=== PATIENT | female | born 1980 ===

== ENCOUNTER 2017-08-18 10:27 | Emergency (ER) | payer OTHER ==
[2017-08-18 10:31] VITALS: BP 139/82; PULSE 77; TEMP 98
[2017-08-18 10:32] VITALS: BMI 33.4
[2017-08-18 10:45] VITALS: RESP 18; O2SAT 98
--- NOTE | 2017-08-18 11:01 | ED PDOC ---
HPI: Female Pain Time Seen by Provider: 08/18/17 10:37 Chief Complaint (Nursing): Female Genitourinary Chief Complaint (Provider): Vaginal spotting History Per: Patient History/Exam Limitations: no limitations Onset/Duration Of Symptoms: Days (4) Current Symptoms Are (Timing): Still Present Additional Complaint(s): 36yo female, no known past medical history, LMP on 06/12/17, presents to the ED for evaluation of vaginal spotting for the past 4 days. Patient denies any abdominal pain. No other complaints. Abnormal Vaginal Bleeding: No Last Menstral Period: 06/12/07 Past Medical History Reviewed: Historical Data, Nursing Documentation, Vital Signs Vital Signs: Last Vital Signs Temp 98 F 08/18/17 10:42 Pulse 77 08/18/17 10:42 Resp 18 08/18/17 10:42 BP 139/82 08/18/17 10:42 Pulse Ox 98 08/18/17 10:42 - Medical History PMH: No Chronic Diseases - Surgical History Surgical History: No Surg Hx - Family History Family History: States: No Known Family Hx - Allergies Allergies/Adverse Reactions: Allergies Allergy/AdvReac Type Severity Reaction Status Date / Time No Known Allergies Allergy Verified 08/18/17 10:41 Review of Systems ROS Statement: Except As Marked, All Systems Reviewed And Found Negative Gastrointestinal: Negative for: Abdominal Pain Genitourinary Female: Positive for: Vaginal Bleeding (spotting x 4 days) Physical Exam - Reviewed Nursing Documentation Reviewed: Yes Vital Signs Reviewed: Yes - Physical Exam Appears: Positive for: Non-toxic, No Acute Distress Head Exam: Positive for: ATRAUMATIC, NORMAL INSPECTION, NORMOCEPHALIC Skin: Positive for: Normal Color Eye Exam: Positive for: Normal appearance Neck: Positive for: Supple Cardiovascular/Chest: Positive for: Regular Rate, Rhythm Respiratory: Positive for: Normal Breath Sounds. Negative for: Respiratory Distress Gastrointestinal/Abdominal: Positive for: Soft. Negative for: Tenderness Pelvic Exam: Positive for: External Exam Normal, No Masses, Other (closed cervix , no adnexal mass or tenderness.). Negative for: Blood, Discharge, Tender Adnexa Extremity: Positive for: Normal ROM. Negative for: Deformity, Swelling Neurologic/Psych: Positive for: Alert, Oriented. Negative for: Motor/Sensory Deficits - Laboratory Results Result Diagrams: 08/18/17 11:27 - ECG O2 Sat by Pulse Oximetry: 98 (RA) Pulse Ox Interpretation: Normal Medical Decision Making Medical Decision Making: Time: 1049 Impression: vaginal spotting x 4 days Plan: -- Pelvic exam conducted with collection systems technicianemilio Ram as ethanol operations manager -- Labs -- US OB transvaginal Reassess Scribe Attestation: Documented by Zina Garcia acting as a scribe for Pito Leblanc MD. Provider Attestation: All medical record entries made by the Scribe were at my direction and personally dictated by me. I have reviewed the chart and agree that the record accurately reflects my personal performance of the history, physical exam, medical decision making, and the department course for this patient. I have also personally directed, reviewed, and agree with the discharge instructions and disposition. Disposition - Clinical Impression Clinical Impression: Threatened - Patient ED Disposition Is Patient to be Admitted: No Counseled Patient/Family Regarding: Studies Performed, Diagnosis, Need For Followup, Rx Given - Disposition [facility]errals: [facility] [Outside] Disposition: Routine/Home Disposition Time: 13:05 Condition: FAIR Additional Instructions: Regressa en dos wilkins para repetir la prueba de sange Instructions: Threatened Miscarriage (ED) Forms: [employer]Tracks (Yi) Print Language: MOZAMBICAN
[2017-08-18 11:39] LABS: BASO # 0.1 K/uL (0.0-0.2); BASO % 0.6 % (0.0-2.0); EOS # 0.1 K/uL (0.0-0.7); EOS % 0.6 % (0.0-4.0); HEMATOCRIT 37.2 % (34.0-47.0); LYMPH # 2.2 K/uL (1.0-4.3); LYMPH % 22.4 % (20.0-40.0); MEAN CELL VOLUME 93.1 fl (81.0-99.0); MEAN CORPUSCULAR HEMOGLOBIN 31.3 pg (27.0-31.0); MEAN CORPUSCULAR HGB CONC 33.6 g/dL (33.0-37.0); MEAN PLATELET VOLUME 8.7 fl (7.2-11.7); MONO # 0.4 K/uL (0.0-0.8); MONO % 4.2 % (0.0-10.0); NEUT # 7.2 K/uL (1.8-7.0); NEUT % 72.2 % (50.0-75.0); NRBC % 0.1 % (0.0-0.0); RED CELL DISTRIBUTION WIDTH 13.5 % (11.5-14.5); WHITE BLOOD COUNT 9.9 K/uL (4.8-10.8)
--- NOTE | 2017-08-18 12:55 | US ---
PROCEDURE: First trimester ultrasound HISTORY: r/o ectopic. Spotting 4 days duration Beta HCG results: 1948.3 COMPARISON: None available. TECHNIQUE: Standard protocol for this study/examination. FINDINGS: Prior examinations from the current : None TECHNIQUE: Real-time 2D imaging, duplex and color Doppler. Cardiac activity: Absent Measurements: [place] rump length: 0.29 cm Gestational age based on CRL 5 week 6 status Gestational age based on gestational sac measurement 6 weeks Gestational age derived from LMP: 10 weeks JAMAL based on LMP: 03/16/2018 JAMAL based on biometry: 04/13/2018 Gestational concordance documented Yolk sac identified Uterus: Unremarkable. No Cervical abnormalities: Negative examination for cervical dilatation or effacement. Closed cervix measuring 3.3 cm Subchorionic hemorrhage: None UTERUS: 5.3 x 7.3 x 9.91 cm. ADNEXA: Right: 1.1 x 1.4 x 1.9 cm. Normal Doppler arterial waveform documented. Left: 2 x 2 x 2.4 cm. Simple cyst 1.4 x 1.6 cm Normal Doppler arterial waveform documented Fluid in the cul-de-sac: None IMPRESSION: Findings suspicious for intrauterine demise based on absence of cardiac activity in approximately 4 weeks discordance between gestational ages. No visible ectopic gestation.
== END 2017-08-18 13:29 | disposition home or self-care (01) ==
LOC: H.ER 10:27
DX: O20.0 Threatened abortion (principal)

== ENCOUNTER 2017-08-20 08:58 | Emergency (ER) | payer OTHER ==
[2017-08-20 09:10] VITALS: O2SAT 100; BMI 33.6
[2017-08-20 09:24] VITALS: RESP 18
[2017-08-20 10:26] LABS: BASO % 0.5 % (0.0-2.0); EOS # 0.1 K/uL (0.0-0.7); EOS % 1.1 % (0.0-4.0); HEMATOCRIT 37.3 % (34.0-47.0); LYMPH # 2.7 K/uL (1.0-4.3); LYMPH % 30.4 % (20.0-40.0); MEAN CELL VOLUME 91.6 fl (81.0-99.0); MEAN CORPUSCULAR HEMOGLOBIN 30.9 pg (27.0-31.0); MEAN CORPUSCULAR HGB CONC 33.7 g/dL (33.0-37.0); MEAN PLATELET VOLUME 8.3 fl (7.2-11.7); MONO # 0.4 K/uL (0.0-0.8); MONO % 4.4 % (0.0-10.0); NEUT # 5.7 K/uL (1.8-7.0); NEUT % 63.6 % (50.0-75.0); NRBC % 0.1 % (0.0-0.0); RED CELL DISTRIBUTION WIDTH 13.1 % (11.5-14.5); WHITE BLOOD COUNT 8.9 K/uL (4.8-10.8)
[2017-08-20 10:47] LABS: BLOOD UREA NITROGEN 9 mg/dl (7-17); CALCIUM 9.4 mg/dL (8.4-10.2); CARBON DIOXIDE 23 mmol/L (22-30); CHLORIDE 107 mmol/L (98-107); GFR AFRICAN-AMERICAN > 60; GLUCOSE,RANDOM 92 mg/dL (65-105); POTASSIUM 3.6 MMOL/L (3.6-5.0); SODIUM 144 mmol/l (132-148)
--- NOTE | 2017-08-20 11:53 | ED PDOC ---
HPI: Female Pain Time Seen by Provider: 08/20/17 09:17 Chief Complaint (Nursing): Female Genitourinary Chief Complaint (Provider): Female Genitourinary History Per: Patient History/Exam Limitations: no limitations Current Symptoms Are (Timing): Still Present Additional Complaint(s): Maya Martin is a 36 year old female that presents to the ED for a reevaluation. Patient reports that she was last seen in the ED two days ago and was found to be ; LMP was 06/12/17. Beta quant was found to be 1900, and US revealed possible demise. Patient reports that she has had ongoing mild vaginal spotting and cramping, but denies weakness or dizziness. Abnormal Vaginal Bleeding: Yes Past Medical History Reviewed: Historical Data, Nursing Documentation, Vital Signs Vital Signs: Last Vital Signs Temp 97.9 F 08/20/17 09:20 Pulse 70 08/20/17 09:20 Resp 18 08/20/17 09:20 BP 130/75 08/20/17 09:20 Pulse Ox 100 08/20/17 09:20 - Medical History PMH: No Chronic Diseases - Surgical History Surgical History: No Surg Hx - Family History Family History: States: Unknown Family Hx - Home Medications Home Medications: Ambulatory Orders Medication Instructions Recorded oxyCODONE/Acetaminophen [Percocet 1 ea PO TID PRN #6 tab 08/20/17 5/325 mg Tab] - Allergies Allergies/Adverse Reactions: Allergies Allergy/AdvReac Type Severity Reaction Status Date / Time No Known Allergies Allergy Verified 08/20/17 09:20 Review of Systems Gastrointestinal: Positive for: Abdominal Pain (Cramping) Genitourinary Female: Positive for: Vaginal Bleeding (mild vaginal spotting) Neurological: Negative for: Weakness, Dizziness Physical Exam - Reviewed Nursing Documentation Reviewed: Yes Vital Signs Reviewed: Yes - Physical Exam Appears: Positive for: Non-toxic, No Acute Distress Head Exam: Positive for: ATRAUMATIC, NORMOCEPHALIC Skin: Positive for: Normal Color, Warm Eye Exam: Positive for: Normal appearance, EOMI, PERRL Neck: Positive for: Normal, Supple Cardiovascular/Chest: Positive for: Regular Rate, Rhythm. Negative for: Murmur Respiratory: Positive for: Normal Breath Sounds. Negative for: Wheezing Gastrointestinal/Abdominal: Positive for: Normal Exam, Soft. Negative for: Tenderness Back: Positive for: Normal Inspection. Negative for: L CVA Tenderness, R CVA Tenderness Extremity: Positive for: Normal ROM. Negative for: Deformity, Swelling Neurologic/Psych: Positive for: Alert, Oriented. Negative for: Motor/Sensory Deficits - Laboratory Results Result Diagrams: 08/20/17 10:21 08/20/17 10:21 - ECG O2 Sat by Pulse Oximetry: 100 (RA) Pulse Ox Interpretation: Normal Medical Decision Making Medical Decision Making: Impression: Reevaluation for Possible Demise Plan: * US OB Transvaginal * Beta quant decreased to 1500 * Reevaluation US OB Transvaginal FINDINGS: TECHNIQUE: Real-time 2D imaging, duplex and color Doppler. Cardiac activity: Absent. This is reproduced Measurements: [place] rump length: 0 0.32 -corresponding to 5 weeks 4 days-6 weeks 2 days Gestational age derived from LMP: 10 weeks JAMAL based on LMP: 03/16/2018 JAMAL based on biometry: 04/13/2018 Gestational disconcordance documented Yolk sac identified Uterus: Unremarkable. No Cervical abnormalities: Negative examination for cervical dilatation or effacement. Incidental nabothian cysts. Subchorionic hemorrhage: Small subchorionic bleeds noted 1 bleed is 4 x 5 x 6 mm another is 8 x 3 x 3 mm. UTERUS: 7.9 x 6.2 x 5.1 cm ADNEXA: Right: 1.4 x 2.9 x 1.5 Normal Doppler arterial waveform documented. Left: 2.2 x 2.6 x 2.6 Simple cyst 1.6 x 1.8 x 1.4 Normal Doppler arterial waveform documented Fluid in the cul-de-sac: None IMPRESSION: The absent cardiac activity is reproduced on the 2nd study - 2 small subchorionic hemorrhage is noted. Findings consistent with demise. The estimated gestational age by ultrasound is 6 weeks 0 days 0 weeks 3 days. This contrasts with the gestational age by LMP of [address] Decker OB consulted and recommended cytotec, she placed the medication vaginally and instructions for return to ER in 3 days for re-evaluation were given. Pain medicine Rx (Dr Decker gave Rx for motrin, I added percocet#6 for severe pain) Instructions explained in albanian. Scribe Attestation: Documented by Tanja Newman, acting as a scribe for Cheikh Jeronimo III, DO. Provider Scribe Attestation: All medical record entries made by the Scribe were at my direction and personally dictated by me. I have reviewed the chart and agree that the record accurately reflects my personal performance of the history, physical exam, medical decision making, and the department course for this patient. I have also personally directed, reviewed, and agree with the discharge instructions and disposition Disposition - Clinical Impression Clinical Impression: Missed - Patient ED Disposition Is Patient to be Admitted: No Counseled Patient/Family Regarding: Studies Performed, Diagnosis, Need For Followup, Rx Given - Disposition Referrals: [facility] [Outside] Disposition: Routine/Home Disposition Time: 13:36 Condition: STABLE Additional Instructions: Return to ER on friday for repeat bloodwork and evaluation. Prescriptions: oxyCODONE/Acetaminophen [Percocet 5/325 mg Tab] 1 ea PO TID PRN #6 tab PRN Reason: Pain, Severe (8-10) Instructions: Spontaneous Miscarriage (ED), Misoprostol (By mouth) Forms: [employer]elation (Frisian) Print Language: MOLDOVAN
--- NOTE | 2017-08-20 12:49 | CP.PCM.CON ---
<Deepika Henderson - Last Filed: 08/20/17 16:25> History of Present Illness - History of Present Illness History of Present Illness: CC: Vaginal bleeding HPI: 36 YO with LMP of 06/11/17 is seen in [facility] ED for vaginal bleeding. Pt states that she has had vaginal bleeding x 1 week and low back pain. She did not pass any large clots but states that the bleeding is similar to her periods. Pt was last seen in the ED 08/18 for similar concerns, at the time pt was found to have BHCG pf 1948 and transvaginal u/s was sig for suspicious for intrauterine demise based on abscence of cardiac activity in appropriately 4 weeks discordance between gestation ages. Pt was sent home with a follow up in ED. Today a pt had blood work sig for BHCG of 1513 and repeat transvaginal u/s sig for absent cardiac activity, finding consistent with demise. Estimated gestational age by u/s is 6 weeks contrasts with gestational age of 10.2 wks. Denies fever, headache, dizziness, n/v/d/c. Clinic: [place] [facility]x: 2 full term 1 nvd and 1 in 2012 for distress GynHx: no STIs, normal pap. Started menstruation at age 11 and her periods are regular and last 5 days. PMH: denies SurgH: 2012 SH: , no smoking, illicit drug use or ETOH FH: denies Meds: none Allergies: NKDA Review of Systems - Constitutional Constitutional: absent: Chills, Fever, Headache - Cardiovascular Cardiovascular: absent: Chest Pain, Palpitations - Respiratory Respiratory: absent: Cough, Dyspnea - Gastrointestinal Gastrointestinal: absent: Abdominal Pain, Bloating - Reproductive: Female Reproductive:Female: Normal Menses, Abnormal Vaginal Bleeding - Menstruation Menstruation: Normal Menses, Abnormal Vaginal Bleeding - Musculoskeletal Musculoskeletal: Back Pain (low back pain) - Neurological Neurological: absent: Dizziness, Headaches - Psychiatric Psychiatric: Anxiety Past Patient History - Past Medical History & Family History Past Medical History?: No - Past Social History Smoking Status: Never Smoked Alcohol: None Drugs: Denies Home Situation {Lives}: With Family - PSYCHIATRIC Hx Substance Use: No - SURGICAL HISTORY Hx Section: Yes - ANESTHESIA Hx Anesthesia: Yes Hx Anesthesia Reactions: No Meds Home Medications: Home Medication List Medication Instructions Recorded Confirmed Type oxyCODONE/Acetaminophen [Percocet 1 ea PO TID PRN #6 tab 08/20/17 Rx 5/325 mg Tab] Allergies/Adverse Reactions: Allergies Allergy/AdvReac Type Severity Reaction Status Date / Time No Known Allergies Allergy Verified 08/20/17 09:20 Physical Exam - Constitutional Appears: In Acute Distress - Head Exam Head Exam: ATRAUMATIC, NORMAL INSPECTION - Eye Exam Eye Exam: EOMI, Normal appearance - ENT Exam ENT Exam: Mucous Membranes Moist - Neck Exam Neck exam: Positive for: Full Rom, Normal Inspection - Respiratory Exam Respiratory Exam: Clear to Auscultation Bilateral, NORMAL BREATHING PATTERN - Cardiovascular Exam Cardiovascular Exam: REGULAR RHYTHM, +S1, +S2 - GI/Abdominal Exam GI & Abdominal Exam: Normal Bowel Sounds, Soft. absent: Distended, Tenderness - Exam Exam: NORMAL INSPECTION Speculum exam: Vaginal Bleeding - Extremities Exam Extremities exam: Positive for: full ROM, normal inspection. Negative for: pedal edema - Back Exam Back exam: NORMAL INSPECTION. absent: CVA tenderness (L), CVA tenderness (R) - Neurological Exam Neurological exam: Alert, Normal Gait, Oriented x3 - Psychiatric Exam Psychiatric exam: Anxious - Skin Skin Exam: Dry, Intact, Normal Color, Warm Results - Vital Signs Recent Vital Signs: Last Vital Signs Temp 97.9 F 08/20/17 09:20 Pulse 70 08/20/17 09:20 Resp 18 08/20/17 09:20 BP 130/75 08/20/17 09:20 Pulse Ox 100 08/20/17 11:59 - Labs Result Diagrams: 08/20/17 10:21 08/20/17 10:21 Labs: Laboratory Results - last 24 hr 08/20/17 08/20/17 08/20/17 10:21 10:21 10:21 WBC 8.9 RBC 4.07 Hgb 12.6 Hct 37.3 MCV 91.6 MCH 30.9 MCHC 33.7 RDW 13.1 Plt Count 298 MPV 8.3 Neut % (Auto) 63.6 Lymph % (Auto) 30.4 Burke % (Auto) 4.4 Eos % (Auto) 1.1 Baso % (Auto) 0.5 Neut # 5.7 Lymph # 2.7 Burke # 0.4 Eos # 0.1 Baso # 0.0 Sodium 144 Potassium 3.6 Chloride 107 Carbon Dioxide 23 Anion Gap 18 BUN 9 Creatinine 0.6 L Est GFR ( Amer) > 60 Est GFR (Non-Af Amer) > 60 Random Glucose 92 Calcium 9.4 Beta HCG, Quant 1513.00 Assessment & Plan - Assessment and Plan (Free Text) Assessment: 36 YO @ 10 wks IUP (by LMP 06/11/17) is seen in ED for vaginal bleeding likely 2/2 to an Missed AB. BHGC is down from 1948 to 151 today and repeat transvaginal u/s sig for absent cardiac activity, finding consistent with demise. Missed AB -u/s appreciated demise noted -BHCG is down from 1948 (08/18) to 151 (08/20) -cytotec 800mg is ordered and administered vaginally -pt agrees with plan and agrees to follow up on Friday in [facility] ED -ER precautions given, come back with worsening pain, severe bleeding <Ruchi Cedillo - Last Filed: 08/20/17 17:22> Results - Vital Signs Recent Vital Signs: Last Vital Signs Temp 98.0 F 08/20/17 14:41 Pulse 78 08/20/17 14:41 Resp 18 08/20/17 14:41 BP 130/78 08/20/17 14:41 Pulse Ox 100 08/20/17 14:41 - Labs Result Diagrams: 08/20/17 10:21 08/20/17 10:21 Labs: Laboratory Results - last 24 hr 08/20/17 08/20/17 08/20/17 10:21 10:21 10:21 WBC 8.9 RBC 4.07 Hgb 12.6 Hct 37.3 MCV 91.6 MCH 30.9 MCHC 33.7 RDW 13.1 Plt Count 298 MPV 8.3 Neut % (Auto) 63.6 Lymph % (Auto) 30.4 Burke % (Auto) 4.4 Eos % (Auto) 1.1 Baso % (Auto) 0.5 Neut # 5.7 Lymph # 2.7 Burke # 0.4 Eos # 0.1 Baso # 0.0 Sodium 144 Potassium 3.6 Chloride 107 Carbon Dioxide 23 Anion Gap 18 BUN 9 Creatinine 0.6 L Est GFR ( Amer) > 60 Est GFR (Non-Af Amer) > 60 Random Glucose 92 Calcium 9.4 Beta HCG, Quant 1513.00 Assessment & Plan - Assessment and Plan (Free Text) Assessment: OB Hospitalist Addendum: Pt seen and examined. Agree w/ above. 36 yo at 10 wks GA by LMP w/ embryonic demise measuring 6 wks by u/s who p/w 5 days of bleeding. I explained the diagnosis to her and her partner through lang interpreter . Pt and her were very upset. Flight Tower Dispatcher was called to see her. On exam: pt appeared comfortable although visibly upset after she was told about the demise. VE: cervix was thick and closed. Light blood seen on glove. 800 mcg misoprostol placed in vagina to help complete the miscarriage. Pt told to return to the ED on 08/23/2017 for possible repeat dose of misoprostol if she has not completely passed the . (ES
[2017-08-20 14:32] VITALS: TEMP 98
[2017-08-20 14:42] VITALS: BP 130/78; PULSE 78
== END 2017-08-20 15:01 | disposition home or self-care (01) ==
LOC: H.ER 08:58
DX: O02.1 Missed abortion (principal)

== ENCOUNTER 2017-08-20 19:25 | Observation (INO) | payer OTHER ==
[2017-08-20 19:26] VITALS: BMI 33.6
[2017-08-20] MEDS ORDERED: Sodium Chloride 0.9% 1,000 ML IV STA ×2 (19:54→23:06)
[2017-08-20 20:35] LABS: BASO # 0.1 K/uL (0.0-0.2); BASO % 0.7 % (0.0-2.0); EOS # 0.1 K/uL (0.0-0.7); EOS % 0.4 % (0.0-4.0); HEMATOCRIT 36.2 % (34.0-47.0); LYMPH % 17.2 % (20.0-40.0); MEAN CELL VOLUME 91.4 fl (81.0-99.0); MEAN CORPUSCULAR HEMOGLOBIN 30.7 pg (27.0-31.0); MEAN CORPUSCULAR HGB CONC 33.5 g/dL (33.0-37.0); MEAN PLATELET VOLUME 8.8 fl (7.2-11.7); MONO # 0.7 K/uL (0.0-0.8); MONO % 4.1 % (0.0-10.0); NEUT # 13.6 K/uL (1.8-7.0); NEUT % 77.6 % (50.0-75.0); RED CELL DISTRIBUTION WIDTH 13.1 % (11.5-14.5); WHITE BLOOD COUNT 17.6 K/uL (4.8-10.8)
--- NOTE | 2017-08-20 20:43 | ED PDOC ---
HPI: Abdomen Time Seen by Provider: 08/20/17 19:52 Chief Complaint (Nursing): Abdominal Pain Chief Complaint (Provider): Abdominal Pain History Per: Patient History/Exam Limitations: no limitations Current Symptoms Are (Timing): Still Present Additional Complaint(s): 36 y/o female () presents to the ED complaining of abdominal pain. Patient is 6 weeks GA and was evaluated by Dr. Cedillo earlier this morning for missed AB. She was administered intravaginal cytotec. Later during the day she developed cramps and lower abdominal pain radiating to the back. She took Percocet with no relief. Patient noted light spotting but denies heavy vaginal bleeding. Past Medical History Reviewed: Historical Data, Nursing Documentation, Vital Signs Vital Signs: Last Vital Signs Temp 97.9 F 08/21/17 18:11 Pulse 77 08/21/17 18:11 Resp 18 08/21/17 18:11 BP 113/75 08/21/17 18:11 Pulse Ox 98 08/21/17 18:11 - Family History Family History: States: Unknown Family Hx - Social History Current smoker - smoking cessation education provided: No Alcohol: None Drugs: Denies - Home Medications Home Medications: Ambulatory Orders Medication Instructions Recorded No Known Home Med 08/21/17 - Allergies Allergies/Adverse Reactions: Allergies Allergy/AdvReac Type Severity Reaction Status Date / Time No Known Allergies Allergy Verified 08/20/17 09:20 Review of Systems ROS Statement: Except As Marked, All Systems Reviewed And Found Negative (As per HPI, otherwise negative) Gastrointestinal: Positive for: Abdominal Pain (lower abdominal pain radiating to the back) Genitourinary Female: Negative for: Vaginal Bleeding (light spotting noted) Musculoskeletal: Positive for: Other (cramps) Physical Exam - Reviewed Nursing Documentation Reviewed: Yes Vital Signs Reviewed: Yes - Physical Exam Appears: Positive for: Non-toxic, Uncomfortable Head Exam: Positive for: ATRAUMATIC, NORMAL INSPECTION, NORMOCEPHALIC Skin: Positive for: Normal Color, Warm, Dry Eye Exam: Positive for: EOMI, Normal appearance, PERRL Neck: Positive for: Normal, Painless ROM, Supple Cardiovascular/Chest: Positive for: Regular Rate, Rhythm. Negative for: Murmur Respiratory: Positive for: Normal Breath Sounds. Negative for: Accessory Muscle Use, Respiratory Distress Gastrointestinal/Abdominal: Positive for: Soft, Tenderness (suprapubic tenderness) Back: Positive for: Normal Inspection. Negative for: L CVA Tenderness, R CVA Tenderness, Vertebral Tenderness Extremity: Positive for: Normal ROM. Negative for: Pedal Edema, Deformity Neurologic/Psych: Positive for: Alert, Oriented (x3). Negative for: Motor/ Sensory Deficits - Laboratory Results Result Diagrams: 08/21/17 04:45 08/20/17 20:05 - ECG O2 Sat by Pulse Oximetry: 100 (RA) Pulse Ox Interpretation: Normal - Critical Care Total Time (In Min): 60 Medical Decision Making Medical Decision Making: Time: 19:04 Initial Impression: 60 y/o male with past medical history of asthma, COPD and hypertension Plan: --BMP --Beta-HCG --Urine dipstick --CBC w/ diff --Dilaudid 0.5mg IVP --Sodium chloride 1L IV --Heplock insertion --Reevaluation 2242 Labs reviewed: significant for leukocytosis WBC count: 17.6 Significantly elevated from previous CBC from several horus ago. Discussed with Dr. Cedillo (LINUX ARCHITECT), who originally evaluated patient. Agreed with provider plan to repeat CBC after hydration 2346 Labs reviewed: significant for increase in WBC count to 19.[address] Cedillo, who agrees to CT scan the patient. * CTA A/P with PO & IV contrast 0232 CT FINDINGS: Limitations: Motion artifact - mild. Lower thorax: Mild atelectasis. ABDOMEN: Liver: Unremarkable. No mass. Gallbladder and bile ducts: No calcified stones. No ductal dilation. Pancreas: No ductal dilation. No mass. Spleen: No splenomegaly. Adrenals: No mass. Kidneys and ureters: Small calculus within RIGHT kidney. No hydronephrosis. Stomach and bowel: Segmental areas of probable underdistention of LEFT colon. No definite mural thickening. No obstruction. Appendix: Normal caliber. No inflammation. PELVIS: Bladder: Unremarkable. Reproductive: Heterogeneity/heterogeneous material within endometrium/cervix. 1.8 x 1.9 by 1.8 cm LEFT ovarian cyst. ABDOMEN and PELVIS: Intraperitoneal space: Trace free fluid within pelvis. No free air. Bones/joints: No acute fracture. Soft tissues: Unremarkable. Vasculature: Unremarkable. No aneurysm. Lymph nodes: No pathologically enlarged lymph nodes. IMPRESSION: 1. Heterogeneity/heterogeneous material within endometrium/cervix. DDX: Hematoma , RPOC, endometritis. 2. Incidental/non-acute findings are described above. 0330 Case re-discussed with Dr. Cedillo, who agrees with plan to repeat CBC and lactic acid level. 0500 WBC Count: 20 WBC count has increased from previous CBC. Lactic acid level normal. IV Zosyn ordered. Discussed case with Dr. Cedillo. Agrees with plant to admit patient for further monitoring of WBC count (INPATIENT MED) Scribe Attestation: Documented by [place] and Lucie Walker acting as a scribe for Robb Martines MD. Scribe Attestation: All medical record entries made by the Scribe were at my direction and personally dictated by me. I have reviewed the chart and agree that the record accurately reflects my personal performance of the history, physical exam, medical decision making, and the department course for this patient. I have also personally directed, reviewed, and agree with the discharge instructions and disposition. Disposition - Clinical Impression Clinical Impression: Abdominal pain, Missed , Leukocytosis - Patient ED Disposition Is Patient to be Admitted: Yes Discussed With DrNatanael: Ruchi Cedillo Counseled Patient/Family Regarding: Studies Performed, Diagnosis - Disposition Disposition Time: 05:00 Condition: FAIR - Pt Status Changed To: Hospital Disposition Of: Inpatient (INPATIENT MED) - Admit Certification Admit to Inpatient:: After my assessment, the patient will require hospitalization for at least two midnights. This is because of the severity of symptoms shown, intensity of services needed, and/or the medical risk in this patient being treated as an outpatient. - POA Present On Arrival: None
[2017-08-20 21:24] LABS: BLOOD UREA NITROGEN 9 mg/dl (7-17); CALCIUM 9.5 mg/dL (8.4-10.2); CARBON DIOXIDE 23 mmol/L (22-30); CHLORIDE 104 mmol/L (98-107); GFR AFRICAN-AMERICAN > 60; GLUCOSE,RANDOM 117 mg/dL (65-105); POTASSIUM 3.2 MMOL/L (3.6-5.0); SODIUM 142 mmol/l (132-148)
[2017-08-20 23:32] LABS: BASO # 0.2 K/uL (0.0-0.2); BASO % 0.8 % (0.0-2.0); EOS % 0.1 % (0.0-4.0); HEMATOCRIT 35.7 % (34.0-47.0); LYMPH # 2.3 K/uL (1.0-4.3); LYMPH % 11.7 % (20.0-40.0); MEAN CELL VOLUME 92.3 fl (81.0-99.0); MEAN CORPUSCULAR HGB CONC 32.5 g/dL (33.0-37.0); MEAN PLATELET VOLUME 8.6 fl (7.2-11.7); MONO # 0.5 K/uL (0.0-0.8); MONO % 2.5 % (0.0-10.0); NEUT # 16.5 K/uL (1.8-7.0); NEUT % 84.9 % (50.0-75.0); RED CELL DISTRIBUTION WIDTH 13.4 % (11.5-14.5); WHITE BLOOD COUNT 19.5 K/uL (4.8-10.8)
[2017-08-20] MEDS ORDERED: Iohexol 240 (50 ml) PO ONE (23:41)
[2017-08-20] MEDS ORDERED: HYDROmorphone 0.5 mg/0.5 ml ISec IVP STA (23:49)
[2017-08-21 00:15] LABS: RBC URINE 367 /hpf (0-3); URINE BACTERIA RARE (<OCC); URINE BILIRUBIN NEGATIVE (NEGATIVE); URINE BLOOD LARGE (NEGATIVE); URINE COLOR YELLOW (YELLOW); URINE GLUCOSE (UA) NEG (Normal); URINE KETONE 20 mg/dL (NEGATIVE); URINE LEUKOCYTE ESTERASE NEG Leu/uL (Negative); URINE PROTEIN 30 mg/dL (NEGATIVE); URINE UROBILINOGEN 0.2-1.0 mg/dL (0.2-1.0); WBC URINE 6 /hpf (0-5)
[2017-08-21] MEDS ORDERED: Sodium Chloride 0.9% 50 ML IV ONE (01:36)
[2017-08-21] MEDS ORDERED: Iohexol 300 100 ML IJ ONE (01:36)
--- NOTE | 2017-08-21 02:32 | CT ---
EXAM: CT Abdomen and Pelvis With Intravenous Contrast CLINICAL HISTORY: 36 years old, female; Pain; Abdominal pain; Generalized; Prior surgery; Surgery date: 6+ months; Surgery type: ; Additional info: Abd pain missed ab with leukocytosis TECHNIQUE: Axial computed tomography images of the abdomen and pelvis with intravenous contrast. All CT scans at this facility use one or more dose reduction techniques, viz.: automated exposure control; ma/kV adjustment per patient size (including targeted exams where dose is matched to indication; i.e. head); or iterative reconstruction technique. Coronal and sagittal reformatted images were created and reviewed. CONTRAST: 90 mL of administered intravenously. COMPARISON: No relevant prior studies available. FINDINGS: Limitations: Motion artifact - mild. Lower thorax: Mild atelectasis. ABDOMEN: Liver: Unremarkable. No mass. Gallbladder and bile ducts: No calcified stones. No ductal dilation. Pancreas: No ductal dilation. No mass. Spleen: No splenomegaly. Adrenals: No mass. Kidneys and ureters: Small calculus within RIGHT kidney. No hydronephrosis. Stomach and bowel: Segmental areas of probable underdistention of LEFT colon. No definite mural thickening. No obstruction. Appendix: Normal caliber. No inflammation. PELVIS: Bladder: Unremarkable. Reproductive: Heterogeneity/heterogeneous material within endometrium/cervix. 1.8 x 1.9 by 1.8 cm LEFT ovarian cyst. ABDOMEN and PELVIS: Intraperitoneal space: Trace free fluid within pelvis. No free air. Bones/joints: No acute fracture. Soft tissues: Unremarkable. Vasculature: Unremarkable. No aneurysm. Lymph nodes: No pathologically enlarged lymph nodes. IMPRESSION: 1. Heterogeneity/heterogeneous material within endometrium/cervix. DDX: Hematoma, RPOC, endometritis. 2. Incidental/non-acute findings are described above.
[2017-08-21 04:36] LABS: VENOUS BLOOD GAS BASE EXCESS -1.2 mmol/L (0.0-2.0); VENOUS BLOOD GAS MODE ROOM AIR; VENOUS BLOOD GAS PCO2 39 mmHg (40-60); VENOUS BLOOD PH 7.39 (7.32-7.43)
[2017-08-21 04:50] LABS: BASO # 0.1 K/uL (0.0-0.2); BASO % 0.4 % (0.0-2.0); EOS % 0.1 % (0.0-4.0); HEMATOCRIT 33.5 % (34.0-47.0); LYMPH # 1.6 K/uL (1.0-4.3); LYMPH % 7.8 % (20.0-40.0); MEAN CELL VOLUME 92.9 fl (81.0-99.0); MEAN CORPUSCULAR HEMOGLOBIN 30.5 pg (27.0-31.0); MEAN CORPUSCULAR HGB CONC 32.8 g/dL (33.0-37.0); MEAN PLATELET VOLUME 8.6 fl (7.2-11.7); MONO # 0.6 K/uL (0.0-0.8); MONO % 2.9 % (0.0-10.0); NEUT # 17.7 K/uL (1.8-7.0); NEUT % 88.8 % (50.0-75.0); PLATELET COUNT 277 K/uL (130-400); RED CELL DISTRIBUTION WIDTH 13.4 % (11.5-14.5)
[2017-08-21] MEDS ORDERED: Piperacillin/Tazobact 3.375 GM in Sodium Chloride 0.9% 100 ML IV STA (04:59)
--- NOTE | 2017-08-21 05:23 | CP.PCM.HP ---
<Milton Alarcon - Last Filed: 08/21/17 06:16> History of Present Illness - History of Present Illness History of Present Illness: 36 YO , 10 wks GA by LMP (06/11/17) comes to the [facility] ED for vaginal bleeding. Pt states that she has had vaginal bleeding x 1 week and low back pain. patient admits to cramps and lower abdominal pain radiating to the back ( pt took percocet with no relief). She did not pass any large clots but states that the bleeding is similar to her periods. patient admits increased bleeding after her ED visit yesterday. Pt was seen in the ED 08/18 for similar concerns, at the time pt was found to have BHCG of 1948 and transvaginal u/s was sig for suspicious for intrauterine demise based on absence of cardiac activity in appropriately 4 weeks discordance between gestation ages. Pt was sent home with a follow up in ED. Yesterday 08/20, patient presented to ED again for same reason, pt had blood work sig for BHCG of 1513 and repeat transvaginal u/s sig for absent cardiac activity, finding consistent with demise. Estimated gestational age by u/s is 6 weeks contrasts with gestational age of 10.2 wks. Patient was given Cytotec 800mg Vaginally yesterday and d/c home. patient denies any fever, headache, dizziness, n/v/d/c at this time. Clinic: [place] [facility]: 2 full term 1 nvd and 1 in 2013 for distress. BHCG is down from 1948 (08/18) to 1513 (08/20) GynHx: no STIs, normal pap. Started menstruation at age 11 and her periods are regular and last 5 days. PMH: denies SurgH: 2012 SH: , no smoking, illicit drug use or ETOH FH: denies Meds: none Allergies: NKDA ED course: - Significant leukocytosis, WBC count: 17.6, Significantly elevated from previous CBC from several horus ago. - Repeat CBC after hydration shows WBC 19.5 CTA A/P with PO & IV contrast Ordered Present on Admission - Present on Admission Any Indicators Present on Admission: No History of DVT/PE: No History of Uncontrolled Diabetes: No Urinary Catheter: No Decubitus Ulcer Present: No Review of Systems - Constitutional Constitutional: As Per HPI. absent: Chills, Fever - EENT Eyes: absent: Blurred Vision - Cardiovascular Cardiovascular: absent: Chest Pain - Respiratory Respiratory: absent: Cough, Dyspnea, Hemoptysis - Gastrointestinal Gastrointestinal: As Per HPI. absent: Diarrhea - Genitourinary Genitourinary: As Per HPI - Neurological Neurological: absent: Abnormal Hearing, Abnormal Movements, Behavioral Changes, Dizziness, Numbness - Psychiatric Psychiatric: absent: Behavioral Changes - Endocrine Endocrine: absent: Cold Intolorance, Palpitations, Polydipsia, Polyphagia, Polyuria Past Patient History - Infectious Disease Hx of Infectious Diseases: None - Past Medical History & Family History Past Medical History?: No - Past Social History Alcohol: None Drugs: Denies - PSYCHIATRIC Hx Substance Use: No - SURGICAL HISTORY Hx Section: Yes - ANESTHESIA Hx Anesthesia: Yes Hx Anesthesia Reactions: No Meds Allergies/Adverse Reactions: Allergies Allergy/AdvReac Type Severity Reaction Status Date / Time No Known Allergies Allergy Verified 08/20/17 09:20 Physical Exam - Constitutional Appears: No Acute Distress - Head Exam Head Exam: ATRAUMATIC, NORMAL INSPECTION, NORMOCEPHALIC - Eye Exam Eye Exam: Normal appearance Pupil Exam: NORMAL ACCOMODATION, PERRL - ENT Exam ENT Exam: Mucous Membranes Moist, Normal Exam - Neck Exam Neck exam: Positive for: Normal Inspection - Respiratory Exam Respiratory Exam: Clear to Auscultation Bilateral, NORMAL BREATHING PATTERN - Cardiovascular Exam Cardiovascular Exam: REGULAR RHYTHM, +S1, +S2 - GI/Abdominal Exam GI & Abdominal Exam: Normal Bowel Sounds, Soft. absent: Rebound, Tenderness - Extremities Exam Extremities exam: Positive for: full ROM, normal inspection - Back Exam Back exam: absent: CVA tenderness (L), CVA tenderness (R) - Neurological Exam Neurological exam: Alert, CN II-XII Intact, Oriented x3 - Psychiatric Exam Psychiatric exam: Normal Affect, Normal Mood - Skin Skin Exam: Dry, Intact, Normal Color Results - Vital Signs Recent Vital Signs: Last Vital Signs Temp 98.0 F 08/20/17 19:32 Pulse 77 08/20/17 19:32 Resp 16 08/20/17 19:32 BP 119/88 08/20/17 19:32 Pulse Ox 100 08/21/17 04:04 - Labs Result Diagrams: 08/21/17 04:45 08/20/17 20:05 Labs: Laboratory Results - last 24 hr 08/20/17 08/20/17 08/20/17 20:05 20:05 20:05 WBC 17.6 H D RBC 3.96 Hgb 12.1 Hct 36.2 MCV 91.4 MCH 30.7 MCHC 33.5 RDW 13.1 Plt Count 326 MPV 8.8 Neut % (Auto) 77.6 H Lymph % (Auto) 17.2 L [place] % (Auto) 4.1 Eos % (Auto) 0.4 Baso % (Auto) 0.7 Neut # 13.6 H Lymph # 3.0 [place] # 0.7 Eos # 0.1 Baso # 0.1 pO2 VBG pH VBG pCO2 VBG HCO3 VBG Total CO2 VBG O2 Sat (Calc) VBG Base Excess VBG Potassium Glucose Lactate FiO2 Sodium 142 Potassium 3.2 L Chloride 104 Carbon Dioxide 23 Anion Gap 18 BUN 9 Creatinine 0.6 L Est GFR ( Amer) > 60 Est GFR (Non-Af Amer) > 60 Random Glucose 117 H Calcium 9.5 Beta HCG, Quant 1270.20 Venous Blood Potassium Urine Color Urine Clarity Urine pH Ur Specific [place] Urine Protein Urine Glucose (UA) Urine Ketones Urine Blood Urine Nitrate Urine Bilirubin Urine Urobilinogen Ur Leukocyte Esterase Urine RBC (Auto) Urine Microscopic WBC Ur Squamous Epith Cells Urine Bacteria 08/20/17 08/20/17 08/21/17 23:15 23:28 04:27 WBC 19.5 H RBC 3.86 Hgb 11.6 L Hct 35.7 MCV 92.3 MCH 30.0 MCHC 32.5 L RDW 13.4 Plt Count 302 MPV 8.6 Neut % (Auto) 84.9 H Lymph % (Auto) 11.7 L [place] % (Auto) 2.5 Eos % (Auto) 0.1 Baso % (Auto) 0.8 Neut # 16.5 H Lymph # 2.3 [place] # 0.5 Eos # 0.0 Baso # 0.2 pO2 72 H VBG pH 7.39 VBG pCO2 39 L VBG HCO3 23.9 VBG Total CO2 24.8 VBG O2 Sat (Calc) 98.7 H VBG Base Excess -1.2 L VBG Potassium 3.5 L Glucose 127 H Lactate 0.9 FiO2 21.0 Sodium 136.0 Potassium Chloride 105.0 Carbon Dioxide Anion Gap BUN Creatinine Est GFR ( Amer) Est GFR (Non-Af Amer) Random Glucose Calcium Beta HCG, Quant Venous Blood Potassium 3.5 L Urine Color Yellow Urine Clarity Cloudy Urine pH 7.0 Ur Specific [place] 1.014 Urine Protein 30 Urine Glucose (UA) Neg Urine Ketones 20 Urine Blood Large Urine Nitrate Negative Urine Bilirubin Negative Urine Urobilinogen 0.2-1.0 Ur Leukocyte Esterase Neg Urine RBC (Auto) 367 H Urine Microscopic WBC 6 H Ur Squamous Epith Cells 1 Urine Bacteria Rare 08/21/17 04:45 WBC 20.0 H RBC 3.61 L Hgb 11.0 L Hct 33.5 L MCV 92.9 MCH 30.5 MCHC 32.8 L RDW 13.4 Plt Count 277 MPV 8.6 Neut % (Auto) 88.8 H Lymph % (Auto) 7.8 L [place] % (Auto) 2.9 Eos % (Auto) 0.1 Baso % (Auto) 0.4 Neut # 17.7 H Lymph # 1.6 [place] # 0.6 Eos # 0.0 Baso # 0.1 pO2 VBG pH VBG pCO2 VBG HCO3 VBG Total CO2 VBG O2 Sat (Calc) VBG Base Excess VBG Potassium Glucose Lactate FiO2 Sodium Potassium Chloride Carbon Dioxide Anion Gap BUN Creatinine Est GFR ( Amer) Est GFR (Non-Af Amer) Random Glucose Calcium Beta HCG, Quant Venous Blood Potassium Urine Color Urine Clarity Urine pH Ur Specific [place] Urine Protein Urine Glucose (UA) Urine Ketones Urine Blood Urine Nitrate Urine Bilirubin Urine Urobilinogen Ur Leukocyte Esterase Urine RBC (Auto) Urine Microscopic WBC Ur Squamous Epith Cells Urine Bacteria Assessment & Plan - Assessment and Plan (Free Text) Assessment: A/P: 36 YO @ 10 wks IUP (by LMP 06/11/17) is seen in ED for vaginal bleeding likely 2/2 to an Missed AB. BHGC is down from 1948 to 1513 yesterday and repeat transvaginal u/s sig for absent cardiac activity, finding consistent with demise. Missed AB - BHGC is down from 1948-->1513-->1270 - Transvaginal u/s sig for absent cardiac activity - Cytotec 800mg given yesterday - NPO - Dilaudid 0.5mg IVP - Consider D&C today Acute Leukocytosis, Unknown etiology - HD stable, Afebrile - WBC Count: 17.6--> 19.5--> 20 (with in few hours) - CT A/P: Heterogeneity/heterogeneous material within endometrium/cervix. DDX: Hematoma, RPOC, endometritis - Normal Lactic acid - IV Zosyn given Case discussed with Dr. Cedillo. Admit/Observation patient for further monitoring of WBC count (INPATIENT MED) --- Milton Alarcon, PGY-1 - Date & Time Date: 08/21/17 Time: 05:15 Decision To Admit - Pt Status Changed To: Hospital Disposition Of: Observation - . Bed Request Type: Med/Surg Admitting Physician: Dr. Cedillo <Ruchi Cedillo - Last Filed: 08/21/17 07:12> Results - Vital Signs Recent Vital Signs: Last Vital Signs Temp 98.1 F 08/21/17 05:40 Pulse 93 H 08/21/17 05:40 Resp 16 08/21/17 05:40 BP 110/84 08/21/17 05:40 Pulse Ox 97 08/21/17 05:40 - Labs Result Diagrams: 08/21/17 04:45 08/20/17 20:05 Labs: Laboratory Results - last 24 hr 08/20/17 08/20/17 08/20/17 20:05 20:05 20:05 WBC 17.6 H D RBC 3.96 Hgb 12.1 Hct 36.2 MCV 91.4 MCH 30.7 MCHC 33.5 RDW 13.1 Plt Count 326 MPV 8.8 Neut % (Auto) 77.6 H Lymph % (Auto) 17.2 L [place] % (Auto) 4.1 Eos % (Auto) 0.4 Baso % (Auto) 0.7 Neut # 13.6 H Lymph # 3.0 [place] # 0.7 Eos # 0.1 Baso # 0.1 Neutrophils % (Manual) Band Neutrophils % Lymphocytes % (Manual) Monocytes % (Manual) Platelet Estimate Hypochromasia (manual) Anisocytosis (manual) pO2 VBG pH VBG pCO2 VBG HCO3 VBG Total CO2 VBG O2 Sat (Calc) VBG Base Excess VBG Potassium Glucose Lactate FiO2 Sodium 142 Potassium 3.2 L Chloride 104 Carbon Dioxide 23 Anion Gap 18 BUN 9 Creatinine 0.6 L Est GFR ( Amer) > 60 Est GFR (Non-Af Amer) > 60 Random Glucose 117 H Calcium 9.5 Beta HCG, Quant 1270.20 Venous Blood Potassium Urine Color Urine Clarity Urine pH Ur Specific [place] Urine Protein Urine Glucose (UA) Urine Ketones Urine Blood Urine Nitrate Urine Bilirubin Urine Urobilinogen Ur Leukocyte Esterase Urine RBC (Auto) Urine Microscopic WBC Ur Squamous Epith Cells Urine Bacteria 08/20/17 08/20/17 08/21/17 23:15 23:28 04:27 WBC 19.5 H RBC 3.86 Hgb 11.6 L Hct 35.7 MCV 92.3 MCH 30.0 MCHC 32.5 L RDW 13.4 Plt Count 302 MPV 8.6 Neut % (Auto) 84.9 H Lymph % (Auto) 11.7 L [place] % (Auto) 2.5 Eos % (Auto) 0.1 Baso % (Auto) 0.8 Neut # 16.5 H Lymph # 2.3 [place] # 0.5 Eos # 0.0 Baso # 0.2 Neutrophils % (Manual) Band Neutrophils % Lymphocytes % (Manual) Monocytes % (Manual) Platelet Estimate Hypochromasia (manual) Anisocytosis (manual) pO2 72 H VBG pH 7.39 VBG pCO2 39 L VBG HCO3 23.9 VBG Total CO2 24.8 VBG O2 Sat (Calc) 98.7 H VBG Base Excess -1.2 L VBG Potassium 3.5 L Glucose 127 H Lactate 0.9 FiO2 21.0 Sodium 136.0 Potassium Chloride 105.0 Carbon Dioxide Anion Gap BUN Creatinine Est GFR ( Amer) Est GFR (Non-Af Amer) Random Glucose Calcium Beta HCG, Quant Venous Blood Potassium 3.5 L Urine Color Yellow Urine Clarity Cloudy Urine pH 7.0 Ur Specific [place] 1.014 Urine Protein 30 Urine Glucose (UA) Neg Urine Ketones 20 Urine Blood Large Urine Nitrate Negative Urine Bilirubin Negative Urine Urobilinogen 0.2-1.0 Ur Leukocyte Esterase Neg Urine RBC (Auto) 367 H Urine Microscopic WBC 6 H Ur Squamous Epith Cells 1 Urine Bacteria Rare 08/21/17 04:45 WBC 20.0 H RBC 3.61 L Hgb 11.0 L Hct 33.5 L MCV 92.9 MCH 30.5 MCHC 32.8 L RDW 13.4 Plt Count 277 MPV 8.6 Neut % (Auto) 88.8 H Lymph % (Auto) 7.8 L [place] % (Auto) 2.9 Eos % (Auto) 0.1 Baso % (Auto) 0.4 Neut # 17.7 H Lymph # 1.6 [place] # 0.6 Eos # 0.0 Baso # 0.1 Neutrophils % (Manual) 88 H Band Neutrophils % 3 H Lymphocytes % (Manual) 7 L Monocytes % (Manual) 2 Platelet Estimate Normal Hypochromasia (manual) Slight Anisocytosis (manual) Slight pO2 VBG pH VBG pCO2 VBG HCO3 VBG Total CO2 VBG O2 Sat (Calc) VBG Base Excess VBG Potassium Glucose Lactate FiO2 Sodium Potassium Chloride Carbon Dioxide Anion Gap BUN Creatinine Est GFR ( Amer) Est GFR (Non-Af Amer) Random Glucose Calcium Beta HCG, Quant Venous Blood Potassium Urine Color Urine Clarity Urine pH Ur Specific [place] Urine Protein Urine Glucose (UA) Urine Ketones Urine Blood Urine Nitrate Urine Bilirubin Urine Urobilinogen Ur Leukocyte Esterase Urine RBC (Auto) Urine Microscopic WBC Ur Squamous Epith Cells Urine Bacteria Assessment & Plan - Assessment and Plan (Free Text) Assessment: OB Hospitalist Addendum: Patient seen and examined by me. Agree w/ above. 36 yo w/ missed AB, s/p 800 mcg misoprostol placed in vagina yesterday, returned to the ED w/ abdominal pain and found to have leukocytosis. On exam, pt appeared comfortable (after pain meds), VE: slight CMT, no uterine tenderness , cervix closed, small amount blood on glove this am, although pt was noted to be bleeding more heavily last night. Last WBC was 20 w/ [address] scan revealed heterogeneous material w/i endometrium/ cx w/ differential dx including hematoma, RPOC, and endometritis. Pt started on IV Zosyn and admitted for observation d/t leukocytosis. (ES)
[2017-08-21 06:08] LABS: NEUTROPHIL 88 % (42-75); TOTAL CELLS COUNTED 100
[2017-08-21] MEDS ORDERED: Chlorhexidine Gluconate 1 APPL/PKT TP ONE (06:47)
[2017-08-21] MEDS ORDERED: Lactated Ringer's 1,000 ML IV SCH ×2 (09:45→16:00)
--- NOTE | 2017-08-21 10:32 | US ---
PROCEDURE: OB 1st trimester. ultrasound 1st trimester HISTORY: missed AB COMPARISON: 08/20/2017, 08/18/2017 ultrasound TECHNIQUE: Real-time transabdominal and transvaginal ultrasound examination of the pelvis was performed. Uterus measures 12.4 x 4.4 x 6.0 centimeters. Previously identified gestational sac is no longer appreciated. There appears to be hypoechoic structure and debris within central uterine cavity extending towards lower uterine segment and cervix. Findings suggest ongoing or missed . Additional soft tissue echogenicity is seen in the endometrial canal and towards the cervix. No pole is appreciated. Endometrial complex measures 12 millimeters. Right is normal in size and echogenicity. Small corpus luteal cyst is seen in the left ovary measuring 20 millimeters x 16 millimeters. No fluid is seen in the pelvis. No ectopic gestation is appreciated on this ultrasound exam. FINDINGS: See above IMPRESSION: Ongoing or missed with interval decrease in size and movement of the previously seen gestational sac into the lower uterine segment region. Additional soft tissue and debris are noted probably representing some hemorrhagic products.
[2017-08-21] MEDS: Piperacillin/Tazobact 3.375 GM in Sodium Chloride 0.9% 100 ML IVPB SCH ×2 (11:35→16:20)
[2017-08-21] MEDS ORDERED: Strong Iodine Topical Sol. 5%-10% ONE (14:08)
[2017-08-21] MEDS ORDERED: Ferric Subsulfate Sol(60 mL) ONE (14:08)
[2017-08-21] MEDS ORDERED: Propofol 10 mg/ml Inj (20 ML) ONE (14:41)
[2017-08-21] MEDS ORDERED: Lidocaine 1% 5ml Abboject IV ONE (14:42)
[2017-08-21] MEDS ORDERED: Oxytocin 10 Units/ml Inj ONE (14:43)
[2017-08-21] MEDS ORDERED: Lactated Ringer's 1,000 ML IV ONE (14:55)
--- NOTE | 2017-08-21 14:56 | CP.PCM.PN ---
Subjective - Date & Time of Evaluation Date of Evaluation: 08/21/17 Time of Evaluation: 14:54 - Subjective Subjective: Pt without complaints. Pt with persistent missed ab confirmed by sono this morning. Discussed options with patient and patient opting for D&C. Discussed the R/B/A of procedure and all patient questions answered. Objective - Vital Signs/Intake and Output Vital Signs (last 24 hours): Temp Pulse Resp BP Pulse Ox 98.3 F 80 17 106/69 98 08/21/17 14:42 08/21/17 14:42 08/21/17 14:42 08/21/17 14:42 08/21/17 14:42 - Medications Medications: Current Medications Hydromorphone HCl (Dilaudid) 0.5 mg IVP Q3 PRN PRN Reason: Pain, moderate (4-7) Lactated Ringer's (Lactated Ringer's) 1,000 mls @ 125 mls/hr IV .Q8H SHAI Last Admin: 08/21/17 11:40 Dose: 125 mls/hr Piperacillin Sod/Tazobactam (Sod 3.375 gm/ Sodium Chloride) 100 mls @ 100 mls/ hr IVPB Q6 SHAI PRN Reason: Protocol Last Admin: 08/21/17 11:35 Dose: 100 mls/hr - Labs Labs: 08/21/17 04:45 08/20/17 20:05 Assessment and Plan - Assessment and Plan (Free Text) Assessment: Missed Ab Plan: Pt consented for Suction D&C. Plan for routine postop observation and care.
[2017-08-21] MEDS ORDERED: HYDROmorphone 0.5 mg/0.5 ml ISec IVP PRN (15:46)
--- NOTE | 2017-08-21 17:14 | CP.PCM.DIS ---
Provider - Provider Date of Admission: 08/21/17 04:56 Attending physician: Ruchi Cedillo MD Time Spent in preparation of Discharge (in minutes): 20 Hospital Course - Lab Results Lab Results: Most Recent Lab Values WBC 20.0 K/uL (4.8-10.8) H 08/21/17 04:45 RBC 3.61 Mil/uL (3.80-5.20) L 08/21/17 04:45 Hgb 11.0 g/dL (12.0-16.0) L 08/21/17 04:45 Hct 33.5 % (34.0-47.0) L 08/21/17 04:45 MCV 92.9 fl (81.0-99.0) 08/21/17 04:45 MCH 30.5 pg (27.0-31.0) 08/21/17 04:45 MCHC 32.8 g/dL (33.0-37.0) L 08/21/17 04:45 RDW 13.4 % (11.5-14.5) 08/21/17 04:45 Plt Count 277 K/uL (130-400) 08/21/17 04:45 MPV 8.6 fl (7.2-11.7) 08/21/17 04:45 Neut % (Auto) 88.8 % (50.0-75.0) H 08/21/17 04:45 Lymph % (Auto) 7.8 % (20.0-40.0) L 08/21/17 04:45 [place] % (Auto) 2.9 % (0.0-10.0) 08/21/17 04:45 Eos % (Auto) 0.1 % (0.0-4.0) 08/21/17 04:45 Baso % (Auto) 0.4 % (0.0-2.0) 08/21/17 04:45 Neut # 17.7 K/uL (1.8-7.0) H 08/21/17 04:45 Lymph # 1.6 K/uL (1.0-4.3) 08/21/17 04:45 [place] # 0.6 K/uL (0.0-0.8) 08/21/17 04:45 Eos # 0.0 K/uL (0.0-0.7) 08/21/17 04:45 Baso # 0.1 K/uL (0.0-0.2) 08/21/17 04:45 Neutrophils % (Manual) 88 % (42-75) H 08/21/17 04:45 Band Neutrophils % 3 % (0-2) H 08/21/17 04:45 Lymphocytes % (Manual) 7 % (20-50) L 08/21/17 04:45 Monocytes % (Manual) 2 % (0-10) 08/21/17 04:45 Platelet Estimate Normal (NORMAL) 08/21/17 04:45 Hypochromasia (manual) Slight 08/21/17 04:45 Anisocytosis (manual) Slight 08/21/17 04:45 pO2 72 mm/Hg (30-55) H 08/21/17 04:27 VBG pH 7.39 (7.32-7.43) 08/21/17 04:27 VBG pCO2 39 mmHg (40-60) L 08/21/17 04:27 VBG HCO3 23.9 mmol/L 08/21/17 04:27 VBG Total CO2 24.8 mmol/L (22-28) 08/21/17 04:27 VBG O2 Sat (Calc) 98.7 % (40-65) H 08/21/17 04:27 VBG Base Excess -1.2 mmol/L (0.0-2.0) L 08/21/17 04:27 VBG Potassium 3.5 mmol/L (3.6-5.2) L 08/21/17 04:27 Sodium 136.0 mmol/L (132-148) 08/21/17 04:27 Chloride 105.0 mmol/L (98-107) 08/21/17 04:27 Glucose 127 mg/dL (65-105) H 08/21/17 04:27 Lactate 0.9 mmol/L (0.7-2.1) 08/21/17 04:27 FiO2 21.0 % 08/21/17 04:27 Sodium 142 mmol/l (132-148) 08/20/17 20:05 Potassium 3.2 MMOL/L (3.6-5.0) L 08/20/17 20:05 Chloride 104 mmol/L (98-107) 08/20/17 20:05 Carbon Dioxide 23 mmol/L (22-30) 08/20/17 20:05 Anion Gap 18 (10-20) 08/20/17 20:05 BUN 9 mg/dl (7-17) 08/20/17 20:05 Creatinine 0.6 mg/dl (0.7-1.2) L 08/20/17 20:05 Est GFR ( Amer) > 60 08/20/17 20:05 Est GFR (Non-Af Amer) > 60 08/20/17 20:05 Random Glucose 117 mg/dL (65-105) H 08/20/17 20:05 Calcium 9.5 mg/dL (8.4-10.2) 08/20/17 20:05 Beta HCG, Quant 1270.20 mIU/mL 08/20/17 20:05 Venous Blood Potassium 3.5 mmol/L (3.6-5.2) L 08/21/17 04:27 Urine Color Yellow (YELLOW) 08/20/17 23:15 Urine Clarity Cloudy (Clear) 08/20/17 23:15 Urine pH 7.0 (5.0-8.0) 08/20/17 23:15 Ur Specific [place] 1.014 (1.003-1.030) 08/20/17 23:15 Urine Protein 30 mg/dL (NEGATIVE) 08/20/17 23:15 Urine Glucose (UA) Neg mg/dL (Normal) 08/20/17 23:15 Urine Ketones 20 mg/dL (NEGATIVE) 08/20/17 23:15 Urine Blood Large (NEGATIVE) 08/20/17 23:15 Urine Nitrate Negative (NEGATIVE) 08/20/17 23:15 Urine Bilirubin Negative (NEGATIVE) 08/20/17 23:15 Urine Urobilinogen 0.2-1.0 mg/dL (0.2-1.0) 08/20/17 23:15 Ur Leukocyte Esterase Neg [place]/uL (Negative) 08/20/17 23:15 Urine RBC (Auto) 367 /hpf (0-3) H 08/20/17 23:15 Urine Microscopic WBC 6 /hpf (0-5) H 08/20/17 23:15 Ur Squamous Epith Cells 1 /hpf (0-5) 08/20/17 23:15 Urine Bacteria Rare (<OCC) 08/20/17 23:15 - Hospital Course Hospital Course: 36 YO @ approximately 10 wks gestation was seen in ED for vaginal bleeding. U/s findings consistent with demise, no cardiac activity, BHCG down trending from previous ER visits down to 1016 today. Cytotech was administered vaginally 08/20, and pt was d/c home. Pt returned with abdominal pain and vaginal bleeding this AM. Pt was admitted for missed and leukocytosis (s/p zosyn). U/s today showed ongoing or missed with gestational sac seen in the uterus. Findings were discussed with pt, and pt elected to have D&C. S/p D&C, pt tolerated the procedure well. Remains afebrile and in no acute distress. Pt will be d/c home with follow up in [facility]. Discharge Exam - Head Exam Head Exam: ATRAUMATIC, NORMAL INSPECTION, NORMOCEPHALIC - Eye Exam Eye Exam: EOMI, Normal appearance - ENT Exam ENT Exam: Mucous Membranes Dry - Neck Exam Neck exam: Full Rom, Normal Inspection - Respiratory Exam Respiratory Exam: Clear to PA & Lateral, NORMAL BREATHING PATTERN - Cardiovascular Exam Cardiovascular Exam: REGULAR RHYTHM, +S1, +S2 - GI/Abdominal Exam GI & Abdominal Exam: Normal Bowel Sounds, Soft. absent: Distended, Guarding, Tenderness - Extremities Exam Extremities exam: full ROM - Neurological Exam Neurological exam: Alert, Oriented x3 - Psychiatric Exam Psychiatric exam: Normal Affect - Skin Skin Exam: Dry, Intact, Normal Color, Warm Discharge Plan - Follow Up Plan Condition: STABLE Disposition: HOME/ ROUTINE Patient education suggested?: Yes Instructions: Dilation and Curettage (DC) Additional Instructions: Please return to ED if pain worsens or bleeding persists Please return for fever that persists over 100.4 with tylenol Take Motrin for pain Follow up in [facility] clinic [phone] Referrals: [facility] [Outside] Job Langston MD [Staff Provider] -
[2017-08-21 17:37] VITALS: RESP 18
[2017-08-21 18:12] VITALS: BP 113/75; PULSE 77; TEMP 97.9
[2017-08-21 20:36] VITALS: O2SAT 100
--- NOTE | 2017-08-22 08:19 | PCM.SURG1 ---
Surgeon's Initial Post Op Note - Surgeon's Notes Surgeon: Corrina New Car Make Ready Worker: N/A Type of Anesthesia: General LMA Anesthesia Administered By: Chanda Pre-Operative Diagnosis: Missed Ab Operative Findings: +POC in uterus, otherwise normal pelvic anatomy Post-Operative Diagnosis: Same Operation Performed: Suction D&C Specimen/Specimens Removed: POC Estimated Blood Loss: EBL {In ML}: 100 Blood Products Given: N/A Drains Used: No Drains Post-Op Condition: Good Date of Surgery/Procedure: 08/21/17 Time of Surgery/Procedure: 15:30
--- NOTE | 2017-08-22 15:20 | OP ---
PROCEDURE DATE: 08/21/2017 PREOPERATIVE DIAGNOSIS: Missed at 6 weeks' gestational age. POSTOPERATIVE DIAGNOSIS: Missed at 6 weeks' gestational age. PROCEDURE PERFORMED: Suction, dilation, and curettage. OPERATIVE FINDINGS: Products of conception seen within uterus; otherwise, normal appearing pelvic anatomy. SURGEON: Trey Houser MD. ANESTHESIA ADMINISTERED BY: Tavares Armas MD TYPE OF ANESTHESIA: General. ESTIMATED BLOOD LOSS: 100 mL. FLUIDS: 400 mL of Lactated Ringer's. COMPLICATIONS: None. DESCRIPTION OF PROCEDURE: The patient was taken to the operating room, where general anesthesia was found to be adequate. The patient was prepped and draped in a normal sterile fashion in the dorsal lithotomy position. A weighted speculum was placed at the posterior aspect of the vagina. A Jaime retractor was placed at the anterior surface of the vagina. The cervix was grasped with single tooth tenaculum at the anterior surface. The cervix was dilated with a Jacob dilator to a size of 20-Peruvian. The suction device was placed through the cervix into the uterine cavity. The suction device was activated and products of conception seen removed from the uterus. Suction device was deactivated and removed from the uterus. The uterine lining was curetted with a sharp curette until a gritty texture noted. Again, the suction device was placed through the cervix into the uterine cavity and activated. Remaining products of conception seen removed from the uterus. Suction device was deactivated and removed from the uterus. Tenaculum was removed from the cervix under direct visualization. Both the tenaculum site and cervical os was found to be hemostatic. All instruments were removed from the patient. The patient tolerated the procedure well. All sponge, lap, and needle counts were correct x2. There were no complications. The patient was taken to recovery room in awake and stable condition. Trey Houser MD
== END 2017-08-21 18:30 | disposition home or self-care (01) ==
LOC: H.ER 19:25 → H.ERHOLD 08-21 04:56 → INTOOBSV 08-21 04:56 → H.MEDSURG1 08-21 06:57
PROVIDERS: ADMIT Obstetrics & Gynecology; ATTEND Obstetrics & Gynecology
DX: O02.1 Missed abortion (principal); D72.829 Elevated white blood cell count, unspecified; J44.9 Chronic obstructive pulmonary disease, unspecified; J45.909 Unspecified asthma, uncomplicated; O16.1 Unspecified maternal hypertension, first trimester; Z3A.01 Less than 8 weeks gestation of pregnancy
CPT/HCPCS: 59820; 74177; 76815; 76817; 80048; 81003; 81025; 82803; 84702; 85025; 87040; 88305; 96361; 96374; 96375; 96376; 99284; G0378; J1170; J1885; J2210; J2405; J2543; J2704; J3010; J7040; J7120; Q9966; Q9967